=== PATIENT | female | born 1935 | race Caucasian/White ===

== ENCOUNTER 2022-01-28 13:25 | Outpatient (CLI) | payer MEDICARE, SELFPAY ==
--- NOTE | 2022-01-28 13:42 | ECG_ITS ---
Measurements Intervals [place] Rate: 97 P: 55 KS: 117 QRS: 46 QRSD: 82 T: 21 QT: 322 QTc: 410 Interpretive Statements SINUS RHYTHM WITH SHORT [place] INTERVAL NONSPECIFIC ST ABNORMALITY ABNORMAL ECG NO PREVIOUS ECG AVAILABLE FOR COMPARISON Electronically Signed On 01-28-2022 15:02:45 CDT by Jerome Wu M.D.
== END 2022-01-28 13:26 | disposition home or self-care (01) ==
LOC: ANHSURGERY 13:34
PROVIDERS: PCP Internal Medicine; Visit Provider Orthopaedic Surgery
DX: I10 Essential (primary) hypertension (principal); Z01.818 Encounter for other preprocedural examination; R94.31 Abnormal electrocardiogram [ECG] [EKG]
CPT/HCPCS: 93005

== ENCOUNTER 2022-02-03 01:19 | Day surgery (SDC) | payer MEDICARE, SELFPAY ==
--- NOTE | 2022-01-25 15:21 | PC.NURSE ---
Report to the Outpatient Waiting Room, entrance under the green pavilion located off [facility], at time _0730 on date _02/03/22 . Planned Procedure Time: . Time changes happen often and if your time is changed the preop area will call you the afternoon before. - You and your visitor will be asked to self-screen and do not enter if you have any COVID symptoms. - We encourage only one visitor and NO visitors under age 16 are allowed at this time. Your visitor will receive communication by the phone number that is given day of service. - The patient visitor is requested to social distance or may leave the building when not with patient due to restrictions. - A mask is required within the hospital. Patients may have clear liquids (water, carbonated beverages, clear teas, apple juice) until 3 hours prior to surgery with a maximum of 20 ounces. - No food from midnight until time of surgery - Infants may have breast milk until 4 hours before surgery, formula 6 hours prior to surgery. - Children will be allowed to drink immediately following surgery. If applicable, please bring a bottle or sippy cup to assist with drinking. Juice, water, soda, and popsicles are readily available. For infants on formula, please bring formula the day of surgery. Pacifiers are allowed. Take the following medications with a SIP of water the morning of surgery: ___NONE Medications to discontinue per physician __ALL VITAMINS AND SUPPLEMENTS 3 DAYS PRE OP___. PT WILL CALL DR LI REGARDING ASPIRIN Date to take last dose__01/30/22 Please no make-up, nail cambodian, hairspray, perfume, deodorant, or body powder the day of surgery. No jewelry (including any body piercings) or valuables the day of surgery, leave them at home. Please take a shower or bath the night before, or the morning of, surgery with an antibacterial soap. Wear comfortable, loose fitting clothing. Children are encouraged to wear pajamas. - Jewelry must be removed prior to entering the operating room. Rings and piercings that are not removed may be cut off. - The hospital will not accept responsibility for valuables. - Please leave all valuables, including medications, at home the day of surgery. If you are going home after surgery, a licensed commercial collections driver must drive you home. - NO public transportation without another adult. - We recommend that an adult stay with you for 24 hours following discharge. - We also recommend that you do not drive, make important decision, drink alcoholic beverages, or take any drugs that were not prescribed by your health care provider for at least 24 hours after your discharge time. For Pediatric surgeries, we recommend two adults accompany the child home. Follow any additional instructions given to you from your surgeon. If you or anyone in your household have experienced Covid symptoms in the past week, please notify your surgeon or the nurse liaison at the phone number below for possible testing. Telephone instructions given to _PATIENT and asked if any additional questions and then verbalized understanding. Patient advised to call surgeon office or pre surgery nurse liaison [phone] if any additional questions.
[2022-01-25 15:34] VITALS: BMI 29.0
--- NOTE | 2022-02-01 08:53 | PM.IMHP ---
H&P: HPI History of Present Illness Date/Time: 02/01/22 08:53 Chief Complaint: Patient is an 86-year-old female presents with right knee pain. This has been ongoing for a few months. The patient reports significant mechanical symptoms with locking catching in the knee pain with almost any activity. She cannot twist or turn the knee trying to go up and down stairs or squat or kneel causes significant symptoms. Patient continues to walk with a limp Despite conservative measures, patient has had anti-inflammatory medication cortisone shot activity modification and other conservative measures without much relief. An MRI scan was performed the stabilizing ligaments the knee appeared to be intact. There are complex tears of the body and posterior horn of the medial meniscus including oblique and vertically oriented tears. Oblique tear the medial meniscus posterior horn extends to the root lateral meniscus is intact. There is lateral patellar tilt without significant lateral patellar subluxation there is a full-thickness loss of the articular cartilage in the medial compartment mild thinning of the articular cartilage in the patellofemoral compartment no significant chondromalacia lateral compartment. There is a moderate knee joint effusion and small popliteal fossa cyst. At this point the patient has discussed treatment options in detail with Dr. Gaspar she is aware the above finding she knows she has pre-existing osteoarthritis and may not get full relief of knee pain from knee arthroscopy ever she would like to proceed she would like to avoid total knee arthroplasty at this time. Review of Systems Review of Systems: Ten point review of systems otherwise negative [facility] Social History Social History Smoking packs per day: 1 Smoking cigarettes per day: 20.0 Years smoked: 20 Smoking pack-years: 20.00 Smoking status: Former smoker Tobacco type: cigarettes Smoking end date: 04/11/79 Spiritual care concerns: No Meds Home Medications and Allergies Home Medications Medication Instructions Recorded Confirmed Type ascorbic acid (vitamin C) 1,000 mg 1 g PO DAILY 01/25/22 01/25/22 History tablet aspirin 81 mg tablet,delayed 81 mg PO DAILY 01/25/22 01/25/22 History release (Adult Low Dose Aspirin) atorvastatin 20 mg tablet 20 mg PO EVERY OTHER DAY 01/25/22 01/25/22 History calcium carbonate 600 mg-vitamin 1 tablet PO DAILY 01/25/22 01/25/22 History D3 10 mcg (400 unit) tablet (Calcium 600 + D(3)) cholecalciferol (vitamin D3) 25 25 mcg PO DAILY 01/25/22 01/25/22 History mcg (1,000 unit) tablet cyanocobalamin (vitamin B-12) 500 500 mcg PO DAILY 01/25/22 01/25/22 History mcg tablet lisinopril 10 mg tablet 10 mg PO DAILY 01/25/22 01/25/22 History multivitamin 1 tablet PO DAILY 01/25/22 01/25/22 History Allergies Allergy/AdvReac Type Severity Reaction Status Date / Time No Known Allergies Allergy Mild Unverified 01/25/22 15:11 Exam Narrative: on exam the patient is noted be well-developed well-nourished female no acute distress alert oriented x3. Normal mood and affect. The patient is noted be 5 ft 6 in tall 180 lb with a BMI of 29. Hearing and vision are intact. Respiratory is good no distress. Pulse regular rate rhythm. Abdomen benign. Extremities showed the patient's right knee to be painful with manipulation and range of motion she has tenderness on the medial joint line with a positive Enmanuel exam negative Lorie knee joint is otherwise stable strength is 5 5 there is crepitation through the arc of motion mildly positive patellofemoral compression test mild effusion swelling hips move well with negative Stinchfield negative Seda. Neurovascularly patient is intact. Skin is intact. Central nervous system within normal limits. Strength is 5 5 both lower extremities. Assessment and Plan Assessment and plan (1) Tear of medial m
--- NOTE | 2022-02-02 14:20 | WPDANESEPPF ---
Anes - Initial Pre Proc Eval Procedure: Operation Date: 02/03/22 09:30 Proposed Procedures p Right Knee Arthroscopy, with Partial Medial Meniscectomy, Proceed As Indicated - Edison Gaspar MD Date/Time: 02/02/22 14:20 Surgeon: Edison Gaspar MD Pre Op Diagnosis: Medial meniscus tear right knee Patient Data Age: 86 Gender: F Height: 1.68 m Weight: 81.65 kg Allergies Allergy/AdvReac Type Severity Reaction Status Date / Time No Known Allergies Allergy Mild Unverified 01/25/22 15:11 Home Medications Medication Instructions Recorded Confirmed Type ascorbic acid (vitamin C) 1,000 mg 1 g PO DAILY 01/25/22 01/25/22 History tablet aspirin 81 mg tablet,delayed 81 mg PO DAILY 01/25/22 01/25/22 History release (Adult Low Dose Aspirin) atorvastatin 20 mg tablet 20 mg PO EVERY OTHER DAY 01/25/22 01/25/22 History calcium carbonate 600 mg-vitamin 1 tablet PO DAILY 01/25/22 01/25/22 History D3 10 mcg (400 unit) tablet (Calcium 600 + D(3)) cholecalciferol (vitamin D3) 25 25 mcg PO DAILY 01/25/22 01/25/22 History mcg (1,000 unit) tablet cyanocobalamin (vitamin B-12) 500 500 mcg PO DAILY 01/25/22 01/25/22 History mcg tablet lisinopril 10 mg tablet 10 mg PO DAILY 01/25/22 01/25/22 History multivitamin 1 tablet PO DAILY 01/25/22 01/25/22 History Patient hx anesthesia problems: none Family hx anesthesia problems: none Results Review: All pre-operative results and documents have been reviewed as part of the pre-operative evaluation. [facility] Past Medical History Medical History (Updated 02/02/22 @ 14:21 by Silver Villafana MD) HTN (hypertension) Hyperlipidemia Osteoarthritis Overweight (BMI 25.0-29.9) PONV (postoperative nausea and vomiting) Social History Social History Smoking packs per day: 1 Smoking cigarettes per day: 20.0 Years smoked: 20 Smoking pack-years: 20.00 Smoking status: Former smoker Tobacco type: cigarettes Smoking end date: 04/11/79 Living arrangements: alone Spiritual care concerns: No Anes - Eval Final PreProcedure Day of Procedure 02/02/22 14:20 Patient weight: overweight Heart: regular rate and rhythm Lungs: clear to auscultation and normal air movement Airway: Mallampati scale class II Neurological: alert and oriented Last oral intake: >/= 8 hours ASA classification: II Emergent: no Anesthetic plan: proceed Anesthesia type and monitoring: general LMA Results Review: All pre-operative results and documents have been reviewed as part of the pre-operative evaluation. Informed Consent: The patient's anesthetic plan and its attendant risks and benefits were discussed with the patient/family/POA. Questions were solicited and answers provided to the satisfaction of the patient/family/POA.
[2022-02-03] VITALS (8 sets, daily range): BP systolic 139–177; BP diastolic 56–68; PULSE 70–102; RESP 12–19; TEMP 36.3–37.3; O2SAT 95–100
[2022-02-03] MEDS: ACETAMINOPHEN 500 MG TABLET 1000 MG PO (06:55)
[2022-02-03] MEDS: KETOROLAC 15 MG/ML VIAL (*BKC) IV PUSH (06:55)
[2022-02-03] MEDS: LACTATED RINGERS 1,000 ML 30 ML IV CONT (06:55)
--- NOTE | 2022-02-03 07:06 | WPDHPUPDATE1 ---
History and Physical Update Update Date/Time: 02/03/22 07:06 History and Physical has been reviewed, including an updated exam of the patient. There are NO changes in the patient's condition. Risks, benefits, and alternatives have been discussed and questions answered. Patient agrees to proceed with procedure.
[2022-02-03] MEDS: SCOPOLAMINE 1.5 MG PATCH TRANSDERM (07:11)
[2022-02-03] MEDS: ceFAZolin 2 GM/D5W 50 ML 2 GM/50 ML BAG IVPB (07:23)
--- NOTE | 2022-02-03 08:04 | W.PM.PROC2 ---
Procedure Note - Detailed Date of Procedure 02/03/22 Pre-op Diagnosis Medial meniscus tear right knee Post-op Diagnosis Same Procedure Performed [Right] knee arthroscopy with partial meniscetomy Surgeon Edison Gaspar MD Anesthesia General Description of Procedure Patient brought to the operating room and anesthetic was administered. The knee was steriley prepped and drapped in the usual manner. Standard portals were used. Superior medial portal was used for the outflow cannula, inferior lateral portal was used for the scope, inferior medial portal was used for the instruments. Arthroscopy was performed, the patellar femoral joint degenerative changes. The medial compartment showed a complex tear. The lateral compartment showed fraying. The ACL was intact. Using baskets and khushi the meniscal tear was trimmed back to a stable base so the nothing further could be pulled into the joint. Any loose or delaminated fragments were gently trimmed to a stable base. At this point the instruments were withdrawn, sutures placed and patient left the operating room in satisfactory condition. She had grade 3 changes in the medial and patellofemoral compartments. Estimated Blood Loss 20 Drains No Packing No Pathology None sent Complications No immediate complications Condition Stable Disposition PACU
[2022-02-03] MEDS: oxyCODONE HCL (*CRX) 5 MG TAB IR PO (09:30)
== END 2022-02-03 09:50 | disposition home or self-care (01) ==
PROVIDERS: PCP Internal Medicine; Visit Provider Orthopaedic Surgery
PROC: (CPT 29870; principal; 2022-02-03 07:30)
DX: M23.331 Other meniscus derangements, other medial meniscus, right knee (principal); I10 Essential (primary) hypertension; E78.5 Hyperlipidemia, unspecified; Z79.82 Long term (current) use of aspirin; Z87.891 Personal history of nicotine dependence
CPT/HCPCS: 29881; A9270; J0690; J1100; J1885; J2405; J2704; J3010; J7120